=== PATIENT | female | born 2000 | race Caucasian/White ===

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

== ENCOUNTER 2019-06-27 15:37 | Emergency (ER) | payer MEDICAID ==
[~2019-06-27] VITALS: Ht 175.3 cm; Wt 114.8 kg
[2019-06-27 16:00] VITALS: Ht 175.3 cm; Wt 114.8 kg
[2019-06-27 17:38] VITALS: BP 121/80
== END 2019-06-27 17:39 | disposition home or self-care (01) ==
LOC: ED 15:37
DX: B34.9 Viral infection, unspecified (principal)